=== PATIENT | female | born 1955 | race Caucasian/White ===

== ENCOUNTER → 2021-05-03 | Outpatient (CLI) | payer MEDICAID ==
--- NOTE | 2021-05-03 12:08 | Diagnostic Imaging Report ---
HISTORY: Pain in the left index finger. TECHNIQUE: Three views of the left hand. COMPARISON: None. FINDINGS: No acute fracture or dislocation is seen in the left hand. Alignment appears normal. There is mild joint space loss at the triscaphe joint. No cortical erosions are seen. IMPRESSION: 1. Mild degenerative change in the left hand with no acute osseous abnormality seen. Dictated by: Dictated on workstation # [id number]
== END ==
LOC: ORTHO 10:00
PROVIDERS: ATTEND Orthopaedic Surgery
DX: M19.042 Primary osteoarthritis, left hand (principal)
CPT/HCPCS: 73130; G0463; 99212